=== PATIENT | female | born 1985 | race Caucasian/White ===

== ENCOUNTER 2016-04-23 13:18 | Outpatient (RCR) | payer OTHER ==
[~2016-04-23] VITALS: Ht 162.6 cm; Wt 70.8 kg
[2016-04-23 14:02] VITALS: BP 111/62
[2016-05-27] MEDS ORDERED: IBUP-1773 PO (18:15)
[2016-05-27] MEDS ORDERED: DOCU100C37 PO (18:15)
[2016-05-27] MEDS ORDERED: DIBU30OI TOP (18:15)
[2016-05-27] MEDS ORDERED: ACET1TAB43 PO (18:15)
[2016-05-27] MEDS ORDERED: FERR-74 PO (18:15)
== END 2016-07-22 | disposition home or self-care (01) ==
LOC: WSo 13:18 → EDSTATUS 13:53
PROVIDERS: ATTEND Obstetrics & Gynecology
DX: O09.213 Supervision of pregnancy with history of pre-term labor, third trimester (principal); R76.8 Other specified abnormal immunological findings in serum; Z3A.34 34 weeks gestation of pregnancy
CPT/HCPCS: 59025

== ENCOUNTER → 2019-03-15 | Outpatient (CLI) | payer OTHER ==
[~2019-03-15] MED LIST: ACET1TAB43 PO; DIBU30OI TOP; DOCU100C37 PO; FERR325T18 PO; IBUP-1773 PO
--- NOTE | 2019-03-15 13:25 | Diagnostic Imaging Report ---
INDICATION: anatomy survey. TECHNIQUE: Multiple real-time grayscale images were obtained over the gravid uterus. COMPARISON: None. FINDINGS: Single live intrauterine is in the cephalic presentation. The placenta is posteriorly located and there is no features of previa. The cervix is closed and measures approximately 3.8 cm in length. The amount of amniotic fluid appears visually appropriate. anatomy survey was performed and the following structures are visualized and normal: three-vessel umbilical cord, urinary bladder, kidneys, umbilical cord insertion, cerebellum and cisterna magna, four-chamber heart, cerebral ventricles, and all 4 extremities. The stomach and spine were not well assessed on today's examination due to lie. Biometrical measurements are as follows: Biparietal 4.41 cm, age 19 weeks 3 days. Head circumference 16.54 cm, age 19 weeks 2 days. Abdominal circumference 14.75 cm, age 20 weeks 1 days. Femur length 2.95 cm, age 19 weeks 1 days. Sonographic estimate age: 19 weeks 4 days. Sonographic estimated date of delivery: 08/05/2019. Estimated Weight: 299 gm (+/- 44 gm). LMP percentile: 90%. heart rate: 149 beats per minute. number: 1 of 1. IMPRESSION: 1. Single live intrauterine with concordant dates between today's ultrasound and provided gestational age. 2. Visualized anatomy is normal. The spine and stomach were not well assessed on today's examination due to lie. Dictated by: Dictated on workstation # [id number]
== END ==
LOC: RAD 09:59
PROVIDERS: ATTEND Obstetrics & Gynecology
DX: O36.0121 Maternal care for anti-D [Rh] antibodies, second trimester, fetus 1 (principal); Z3A.20 20 weeks gestation of pregnancy
CPT/HCPCS: 76805

== ENCOUNTER → 2019-04-29 | Outpatient (CLI) | payer OTHER ==
--- NOTE | 2019-04-29 16:34 | Diagnostic Imaging Report ---
INDICATION: survey, anatomic follow-up. TECHNIQUE: Multiple real-time grayscale images were obtained over the gravid uterus. COMPARISON: Prior study of 03/15/2019. FINDINGS: A single live intrauterine fetus is seen in cephalic presentation. Amniotic fluid index is 20.5 cm. Placenta is posterior and grade 1. heart rate is 146 bpm. Normal-appearing stomach and spine are noted. These structures were not visualized on the previous study. Remaining structures are not reimaged at this time. heart rate: 146 beats per minute. number: 1 of 1. IMPRESSION: Single live intrauterine fetus. Anatomic structures which were not seen on the previous study are visualized today and appear normal. The fetus is in cephalic presentation with heart rate of 146 bpm. Dictated by: Dictated on workstation # [id number]
== END ==
LOC: RAD 13:18
PROVIDERS: ATTEND Obstetrics & Gynecology
DX: Z01.83 Encounter for blood typing (principal); O99.012 Anemia complicating pregnancy, second trimester; Z3A.21 21 weeks gestation of pregnancy
CPT/HCPCS: 76805; 76819

== ENCOUNTER → 2019-05-28 | Outpatient (CLI) | payer OTHER ==
--- NOTE | 2019-05-28 13:59 | Diagnostic Imaging Report ---
INDICATION: Follow-up ultrasound. TECHNIQUE: Multiple real-time grayscale images were obtained over the gravid uterus. COMPARISON: None 04/29/2019 and 03/15/2019. FINDINGS: The previous OB ultrasound exam of 04/29/2019 noted a single live fetus. There are no abnormalities identified. On this study the fetus is again visualized. The fetus is cephalic in presentation. heart motion was noted and a rate of 135 BPM was recorded. There are no obvious abnormalities identified. By the first exam of 03/15/2019 the estimated gestational age is 30 weeks 1 day +/- 1.5 weeks. Reportedly the patient has had a prior ultrasound elsewhere which indicated that the EDC is 08/11/2019 consistent with a 29 week 2 day . On this study, the growth parameters have progressed as expected tending towards the high side of normal. The amniotic fluid volume is within normal limits. The placenta is along the left and intact. There is no previa. The cervix was identified and measures 3.4 cm. IMPRESSION: 1. There is a single live fetus approximately 30 weeks 2 days gestation +/- 1.5 weeks. The EDC remains August 05, 2019. 2. There are no obvious abnormalities identified. 3. The growth parameters have progressed as expected since the prior exam tending towards the high side of normal. If further evaluation of the growth is desired, then a follow-up exam in 4-6 weeks should be obtained. Biometrical measurements are as follows: Biparietal 7.82 cm, age 31 weeks 3 days. Head circumference 28.95 cm, age 32 weeks 0 days. Abdominal circumference 27.13 cm, age 31 weeks 2 days. Femur length 5.82 cm, age 30 weeks 3 days. Sonographic estimate age: 31 weeks 2 days. Sonographic estimated date of delivery: 07/28/19. Estimated Weight: 1690 gm (+/- 247 gm). LMP percentile: 92%. heart rate: 135 beats per minute. number: 1 of 1. Dictated by: Dictated on workstation # [id number]
== END ==
LOC: RAD 10:53
PROVIDERS: ATTEND Obstetrics & Gynecology
DX: Z34.93 Encounter for supervision of normal pregnancy, unspecified, third trimester (principal); Z3A.30 30 weeks gestation of pregnancy; Z01.83 Encounter for blood typing; R76.9 Abnormal immunological finding in serum, unspecified
CPT/HCPCS: 76816

== ENCOUNTER 2019-07-17 12:22 | Outpatient (CLI) | payer OTHER ==
--- NOTE | 2019-07-17 12:20 | NUR ---
WILLARD CLARK presented to unit via AMBULATORY, with c/o ABNORMAL MOVEMENT. WILLARD CLARK weighed, gowned, voided, and to bed. EFHM and TOCO applied, VS taken. WILLARD CLARK oriented to bed controls, call light, TV, heat, and A/C controls.
--- NOTE | 2019-07-17 12:46 | NUR ---
DR. HOUSTON NOTIFIED OF PT'S ARRIVAL AND UNABLE TO OBTAIN FHR VIA EFM OR DOPPLER. NEW ORDER RECEIVED.
--- NOTE | 2019-07-17 12:50 | NUR ---
U/S CALLED TO INFORM OF ORDER.
--- NOTE | 2019-07-17 13:29 | NUR ---
DR. HOUSTON NOTIFIED OF CONFIRMATION IN NO HEART TONES; WILL BE UP TO SEE PT AFTER HIS SURGERY.
[2019-07-17 13:40] VITALS: BP 108/59
--- NOTE | 2019-07-17 14:07 | Diagnostic Imaging Report ---
INDICATION: No movement. FINDINGS: There is an intrauterine fetus in a transverse presentation with head to the maternal right. However, no heart tones are detected consistent with demise. Placenta is anterior. Cervical length is 3.3 cm. IMPRESSION: Findings consistent with approximately 36 week intrauterine demise. Dictated by: Dictated on workstation # [id number]
--- NOTE | 2019-07-17 14:35 | NUR ---
DR. HOUSTON ON UNIT, SPOKE WITH S/O. S/O HAS INFORMED THIS RN AND THAT THEY WOULD LIKE TO GO HOME.
--- NOTE | 2019-07-17 14:48 | NUR ---
DISCHARGE PAPERS PROVIDED AND REVIEWED WITH PT, PT VERBALIZES UNDERSTANDING AND DENIES ANY QUESTIONS AT THIS TIME. PAPER SIGNED. PT THEN DISCHARGED FROM [facility] TO [facility]IA AMBULATORY IN STABLE CONDITION ACC BY S/O AND OTHER CHILDREN.
--- NOTE | 2019-07-18 08:24 | Physician Query-Final Dx ---
JOSE WHITLOCK 07/18/19 0824: Clinic Account Progress/Dx Physician Query: Please give diagnosis Please include # weeks gestation Date of Service Jul 17, 2019 at 12:22 IVETH HOUSTON MD 07/19/19 1230: Clinic Account Progress/Dx DIAGNOSIS: Diagnosis 35 WEEKS WITH IUFD JOSE WHITLOCK Jul 18, 2019 08:24 IVETH HOUSTON MD Jul 19, 2019 12:30
== END 2019-07-17 14:48 | disposition home or self-care (01) ==
LOC: WSo 12:22 → LDRP 12:23 → WS 13:56 → LDRP 13:56 → WSo 14:48
PROVIDERS: ATTEND Obstetrics & Gynecology
DX: Z34.83 Encounter for supervision of other normal pregnancy, third trimester (principal); Z3A.36 36 weeks gestation of pregnancy
CPT/HCPCS: 76815; 99213

== ENCOUNTER 2019-07-19 12:11 | Inpatient (IN) | payer OTHER ==
[2019-07-19] VITALS (44 sets, daily range): BP systolic 78–112; BP diastolic 43–83
[~2019-07-19] VITALS: Ht 160 cm; Wt 76.9 kg
--- NOTE | 2019-07-19 12:02 | NUR ---
called prior to pt's admission to . POC reviewed. admission orders received.
--- NOTE | 2019-07-19 12:03 | NUR ---
WILLARD CLARK presented to unit via from ED, accompanied by and children, with c/o IUFD. Pt. weighed, gowned, voided, and to bed. EFHM and TOCO applied, VS taken. Pt. oriented to bed controls, call light, TV, heat, and A/C controls.
[2019-07-19] MEDS ORDERED: D5 LR IV SOLUTION 1,000 ML IV SCH (12:30)
--- NOTE | 2019-07-19 12:32 | NUR ---
POC reviewed with pt, states understanding. requesting to pray for 10 mins before IV started. @ side.
[2019-07-19] MEDS: D5 LR IV SOLUTION 1,000 ML IV SCH ×2 (13:15→21:35)
--- NOTE | 2019-07-19 13:15 | NUR ---
#20g IV to Rt. hand x1 attempt per Rebecca.BERENICE Yancey. unsuccessful attempt x2 by this RN. site patent. secured with opsite. admission labs collected prior to IVF's infusing.
[2019-07-19 13:23] LABS: BILIRUBIN,URINE NEGATIVE (NEGATIVE); CLARITY,URINE CLEAR; COLOR,URINE YELLOW; GLUCOSE, URINE (UA) NEGATIVE (NEGATIVE); KETONES,URINE TRACE (NEGATIVE); LEUKOCYTE ESTERASE ,URINE 1+ (NEGATIVE); NITRITE,URINE NEGATIVE (NEGATIVE); PH,URINE 7.5 (5-9); PROTEIN,URINE NEGATIVE (NEGATIVE)
--- NOTE | 2019-07-19 13:30 | NUR ---
@ bedside. bedside sono to verify position performed by
[2019-07-19 13:32] LABS: BASOPHILS % (AUTO) 0 % (0-10); EOSINOPHILS % (AUTO) 0 % (0-10); HEMATOCRIT 34 % (35-52); HEMOGLOBIN 10.6 G/DL (11.5-16.0); LYMPHOCYTES # (AUTO) 1.4 X 10^3 (1.0-4.0); LYMPHOCYTES % (AUTO) 25 % (12-44); MEAN CORPUSCULAR HEMOGLOBIN 19 PG (25-34); MEAN CORPUSCULAR HGB CONC 32 G/DL (32-36); MEAN CORPUSCULAR VOLUME 60 FL (80-99); MONOCYTES # (AUTO) 0.6 X 10^3 (0.0-1.0); MONOCYTES % (AUTO) 10 % (0-12); NEUTROPHILS # (AUTO) 3.8 X 10^3 (1.8-7.8); NEUTROPHILS % (AUTO) 65 % (42-75); PLATELET COUNT 251 10^3/uL (130-400); WHITE BLOOD COUNT 5.8 10^3/uL (4.3-11.0)
--- NOTE | 2019-07-19 13:32 | NUR ---
SVE 1.5cm, thick per . verbal orders received for Cytotec 100mcg p.o x1 then 50mcg q 4hours p.o. pt may have epidural
[2019-07-19 13:35] LABS: BACTERIA,URINE MODERATE /HPF; SQUAMOUS EPITHELIAL CELL,UR 25-50 /HPF
--- NOTE | 2019-07-19 13:57 | NUR ---
lab here to obtain blood for reference labs.
[2019-07-19] MEDS ORDERED: MISOPROSTOL 100 MCG (CYTOTEC) TAB ONE ×2 (13:58→18:10)
[2019-07-19] MEDS ORDERED: MISOPROSTOL 100 MCG (CYTOTEC) TAB PO ONE ×3 (14:00→18:30)
[2019-07-19] MEDS ORDERED: CATHETER FLUSH 10 ML SYR IV SCH (14:00)
--- NOTE | 2019-07-19 14:03 | NUR ---
Cytotec 100mg p.o. given.
--- NOTE | 2019-07-19 14:07 | NUR ---
1 liter LR infusing via gravity. pt c/o's pain @ insertion site. IV infiltrated.
--- NOTE | 2019-07-19 14:30 | NUR ---
#20g Rt. wrist x1 attempt by BERENICE Emmanuel. site patent. resumed IVF infusion.
[2019-07-19] MEDS ORDERED: fentaNYL INJECTION 100 MCG/2 ML AMP ONE (14:50)
[2019-07-19] MEDS ORDERED: SUFENTA 0.6MCG/ML BUPIVA 0.125 100 ML ONE (14:50)
[2019-07-19] MEDS ORDERED: BUPIVACAINE 0.25% 30 ML (SENSORCAINE) VIAL ONE (14:50)
[2019-07-19] MEDS ORDERED: LIDOCAINE PF 2% 5 ML (XYLOCAINE) VIAL ONE (14:50)
--- NOTE | 2019-07-19 15:04 | NUR ---
YASMANI Davis & Rosanne SRNA here for epidural placement. Procedure explained, consent reviewed and signed by anesthesia. Questions answered to patient's satisfaction. Time out taken to verify correct patient/procedure. 1505- Patient up to side of bed, assisted into sitting position. Betadine prep done x3 and sterile drape applied. 1514-Local done, see anesthesia record. 1520- Test dose given, see anesthesia record for drug and dosage. Epidural catheter secured in place. Epidural placement complete. 1525- Assisted back into bed, monitors adjusted. Epidural dosed, see anesthesia record. Epidural of Sufenta/Bupvicaine @12cc/hr stated per pump. Patient tolerated procedure well.
[2019-07-19] MEDS: EPIDURAL (SUFENTA 0.6MCG/ML BUPIVA 0.125%) 100 ML BAG EPI PRN ×2 (15:26→23:32)
[2019-07-19] MEDS ORDERED: LACTATED RINGERS 1,000 ML IV SCH (15:34)
[2019-07-19] MEDS ORDERED: ONDANSETRON 4 MG/2 ML (SDV) Z0FRAN IV PRN (15:45)
[2019-07-19] MEDS ORDERED: diphenhydrAMINE 50 MG/ML INJ (BENADRYL) IV PRN (15:45)
[2019-07-19] MEDS ORDERED: NALOXONE 0.4 MG/ML 1 ML (NARCAN) VIAL IV PRN (15:45)
--- NOTE | 2019-07-19 17:03 | NUR ---
#16 irish mckeon catheter inserted by this RN while using sterile procedure. immediate return of dark, yellow urine noted in chamber. pt tolerated well.
--- NOTE | 2019-07-19 17:07 | NUR ---
IGNACIOE 1.5cm, thick, anterior. update given to . Addendum: 07/19/19 at 1850 by DEBORAH SANTANA RN pt refused TOCO monitoring for ctx's @ time.
--- NOTE | 2019-07-19 18:07 | NUR ---
50mcg p.o. Cytotec given.
--- NOTE | 2019-07-19 18:22 | NUR ---
called to check on pt's status. update given. order received to given additional 50mcg p.o. Cytotec now. have oncoming RN check cervix in 4 hours, call MD for further orders.
--- NOTE | 2019-07-19 18:34 | NUR ---
Cytotec 50mcg p.o. given per Dr's orders.
--- NOTE | 2019-07-19 19:22 | NUR ---
REPORT RECEIVED AT BEDSIDE AND CARES RESUMED BY THIS NURSE. PT DENIES ANY PAIN, NEEDS OR C/O'S. REPORTS HAS GONE HOME TO CARE FOR THE OTHER CHILDREN. HE WILL RETURN WHEN NEEDED. WILL CONT TO MONITOR PT.
--- NOTE | 2019-07-19 19:22 | NUR ---
report given to BERENICE Solorio.
--- NOTE | 2019-07-19 20:35 | NUR ---
PT DENIES ANY PAIN. ASSISTANCE GIVEN WITH REPOSITIONING PT IS UNABLE TO MOVE LOWER EXTREMITIES. PT DENIES ANY NEEDS AT THIS TIME.
--- NOTE | 2019-07-19 21:35 | NUR ---
NEW BAG D5LR HUNG AND FRESH WATER GIVEN. PT DENIES ANY NEEDS OR PAIN AT THIS TIME.
[2019-07-19] MEDS ORDERED: MISOPROSTOL 200 MCG (CYTOTEC) TABLET ONE (22:22)
--- NOTE | 2019-07-19 22:30 | NUR ---
SVE DONE. LITTLE TO NO CHANGE NOTED FROM PREVIOUS EXAM. 200 MCG CYTOTEC ADMINISTERED PER ORDERS. DR GOFF UPDATED ON PT CONDITION AND ASSESSMENT.
[2019-07-19] MEDS ORDERED: MISOPROSTOL 200 MCG (CYTOTEC) TABLET PO ONE ×2 (22:32→22:35)
--- NOTE | 2019-07-19 23:20 | NUR ---
PT HAD SMALL AMT OF EMESIS AT THIS TIME. REPORTS NAUSEA CAME ON ALL OF A SUDDEN. DID NOT VISUALIZE CYTOTEC IN EMESIS SO NO REPEAT DOSE GIVEN. PT GIVEN ZOFRAN IV AT THIS TIME. NEW EPIDURAL BAG HUNG.
[2019-07-19] MEDS ORDERED: SUFENTA 0.6MCG/ML BUPIVA 0.125 100 ML INJ ONE (23:25)
[2019-07-20] VITALS (54 sets, daily range): BP systolic 77–146; BP diastolic 40–70
--- NOTE | 2019-07-20 00:15 | NUR ---
PT DENIES ANY FURTHER NAUSEA. RESTING OFF ET ON. PT DENIES ANY NEEDS OR PAIN.
[2019-07-20] MEDS ORDERED: MISOPROSTOL 100 MCG (CYTOTEC) TAB PO ONE ×2 (02:30)
[2019-07-20] MEDS ORDERED: MISOPROSTOL 100 MCG (CYTOTEC) TAB ONE (02:44)
[2019-07-20] MEDS ORDERED: MISOPROSTOL 200 MCG (CYTOTEC) TABLET ONE (02:44)
--- NOTE | 2019-07-20 02:45 | NUR ---
SVE DONE WITH LITTLE CHANGE NOTED. 300 MCG CYTOTEC GIVEN PO PER DR GOFF'S ORDERS. PT DENIES ANY FURTHER NEEDS.
--- NOTE | 2019-07-20 03:30 | NUR ---
PT RESTING WELL.
--- NOTE | 2019-07-20 05:30 | NUR ---
PT STATES SHE FEELS LIKE HER ABD IS HARD AND NOT RELAXING AT ALL AND WOULD LIKE TO HAVE THE MONITOR PLACED TO SEE IF SHE IS HAVING CONTRACTIONS. NOTED ABD TO BE VERY TIGHT AND PALPATING STRONG. TOCO APPLIED AT THIS TIME.
--- NOTE | 2019-07-20 06:35 | NUR ---
DR GOFF UPDATED ON PT CONDITION AND PROGRESS.
[2019-07-20] MEDS ORDERED: SUFENTA 0.6MCG/ML BUPIVA 0.125 100 ML INJ ONE (06:54)
[2019-07-20] MEDS: EPIDURAL (SUFENTA 0.6MCG/ML BUPIVA 0.125%) 100 ML BAG EPI PRN (06:57)
[2019-07-20] MEDS ORDERED: OXYTOCIN PRE-MIX DRIP 500 ML IV SCH (07:00)
--- NOTE | 2019-07-20 08:30 | NUR ---
called to check on pt's status. update given. will check cervix after breakfast & update .
--- NOTE | 2019-07-20 08:54 | NUR ---
SVE update given to . no new orders received @ time.
--- NOTE | 2019-07-20 09:52 | NUR ---
[facility] infant.
[2019-07-20] MEDS ORDERED: TRANEXAMIC ACID INJECTION 1,000 MG in NS (IVPB) 100 ML IV ONE (11:15)
[2019-07-20] MEDS ORDERED: MINERAL OIL CONCENTRATE 99.9% 15 ML UDC ONE (13:09)
[2019-07-20] MEDS ORDERED: LIDOCAINE/EPI 2% 1:200,00 (XYLOCAINE) 10 ML VIAL ONE (13:13)
[2019-07-20] MEDS ORDERED: LORazepam 0.5 MG (ATIVAN) TABLET PO PRN (14:00)
[2019-07-20] MEDS ORDERED: WITCH HAZEL(TUCKS) 40 EA JAR TOP PRN (14:00)
[2019-07-20] MEDS ORDERED: MEASLES,MUMPS,RUBELLA 1 EA INJ SQ ONE (14:00)
[2019-07-20] MEDS ORDERED: BENZOCAINE/MENTHOL (DERMOPLAST) 60 ML CAN TP PRN (14:00)
[2019-07-20] MEDS ORDERED: OXYTOCIN (PITOCIN) 10 UNIT/ML VIAL IM ONE (14:00)
[2019-07-20] MEDS ORDERED: DIBUCAINE (NUPERCAINAL) 1% OINT 30 GM TOP PRN (14:00)
[2019-07-20] MEDS ORDERED: TETANUS,DIPTH,PERTUSS P/F (BOOSTRIX) 0.5 ML VIAL IM ONE (14:00)
--- NOTE | 2019-07-20 14:00 | NUR ---
infant to nursery per parents request. 1403- locket of hair obtained 1405- weighed 7# 0.5oz. 3195gm. measured 20.5 inches long. 1409- measurements taken. 1420- hand and foot prints obtained. stockinette hat on. diaper applied. infant placed in cuddle cot, out to mother's room for viewing.
--- NOTE | 2019-07-20 14:08 | OB Labor & Delivery Record ---
Vag Delivery Note Vag Delivery Note Date of Delivery: 07/20/19 Preoperative Diagnosis: Jennyfer Gary is a 33 /Para 3 /2 , Gestational Age 36 weeks, demise, abnormal antibodies (Payton-Nu); maternal anemia, SC trait, alpha thal (Maybe) Postoperative Diagnosis: Same Surgeon: JACKSON GOFF Anesthesia: epidural Delivery Type: vaginal Findings: Non viable male infant, weight pending Lacerations: none Intact placenta with unknown (could not assess due to demise) vessel cord. There was a tight nuchal cord x 2 that could not be reduced Skin sloughed and peeling, no evidence of hydrops Estimated Blood Loss: 100 ml Complications: None; however, her IV infiltrated. She did receive 84 ml/100/ml of Tranexamic acid prior to delivery and a small amount of the IV pitocin, so 20 mU of Oxytocin given IM after delivery Condition: Stable Description of Procedure: The patient is a 33 year old female who presented for induction due to demise. She has a history of abnormal blood antibodies (Payton-Nu). She was admitted and informed consent was obtained. Cervix was unfavorable so she was given accelerated doses of po misoprostol. she progressed to 4 cm after 3 doses (400 mcg total) and then oxytocin was started. She stalled at 6 cm, so AROM was accomplished. There was copious fluid that appeared meconium stained. She progressed to complete dilatation and began to push. She was then set up for delivery. The 's head was delivered atraumatically in the OA position. The shoulders and remainder of the 's body were then delivered without difficulty. There was a tight nuchal cord x 2 and this made delivery of the body difficult as there was no tone to the body. I did utilize the Menticoglou/shoulder shrug maneuver to deliver the shoulders. The cord was doubly clamped and cut. An intact placenta with 3-vessel cord delivered via Cynthia and there was found to be minimal bleeding.~ Vigorous fundal massage was performed and the fundus was found to be firm. IV oxytocin was given, however, the IV infiltrated, so 20 units IM oxytocin was given. Examination of the vagina and perineum revealed no laceration. Following the delivery, sponge, instrument and needle counts were correct. Mom and baby were both in stable condition in the labor suite. Vitals - Labs Vital Signs - I&O Vital Signs Date Time Temp Pulse Resp B/P (MAP) Pulse Ox O2 Delivery O2 Flow Rate FiO2 07/20/19 12:10 95 18 101/59 (73) Room Air 07/20/19 11:55 95 18 101/59 (73) Room Air 07/20/19 11:40 106 18 98/58 (71) Room Air 07/20/19 11:25 96 18 98/55 (69) Room Air 07/20/19 11:10 100 18 103/56 (72) Room Air 07/20/19 10:55 36.6 96 18 98/53 (68) Room Air 07/20/19 10:40 18 Room Air 07/20/19 10:25 36.8 95 18 119/55 (76) Room Air 07/20/19 09:55 107 18 88/51 (63) Room Air 07/20/19 09:40 109 18 104/45 (64) Room Air 07/20/19 09:25 109 18 101/50 (67) Room Air 07/20/19 09:10 102 18 103/55 (71) Room Air 07/20/19 08:55 18 92/53 (66) Room Air 07/20/19 08:40 92 18 94/54 (67) Room Air 07/20/19 08:25 101 18 109/70 (83) Room Air 07/20/19 08:10 92 18 91/55 (67) Room Air 07/20/19 07:55 88 18 94/52 (66) Room Air 07/20/19 07:40 87 18 104/65 (78) Room Air 07/20/19 07:25 37.1 84 18 106/55 (72) Room Air 07/20/19 06:55 91 18 110/66 (81) Room Air 07/20/19 06:40 87 18 101/59 (73) Room Air 07/20/19 06:25 89 18 104/64 (77) Room Air 07/20/19 06:10 89 18 104/66 (79) Room Air 07/20/19 05:55 93 18 108/66 (80) Room Air 07/20/19 05:40 89 18 105/65 (78) Room Air 07/20/19 05:25 86 18 105/55 (72) Room Air 07/20/19 05:10 107 18 103/51 (68) Room Air 07/20/19 04:55 106 18 96/56 (69) Room Air 07/20/19 04:40 106 18 97/58 (71) Room Air 07/20/19 04:25 96 18 89/54 (66) Room Air 07/20/19 04:10 96 18 92/52 (65) Room Air 07/20/19 03:50 93 18 91/51 (64) Room Air 07/20/19 03:40 94 18 91/51 (64) Room Air 07/20/19 03:25 93 16 95/54 (68) Room Air 07/20/19 03:10 90 18 103/63 (76) Room Air 07/20/19 02:55 105 18 105/63 (77) Room Air 07/20/19 02:40 36.6 99 16 100/55 (70) Room Air 07/20/19 02:25 102 16 105/59 (74) Room Air 07/20/19 02:10 105 18 118/63 (81) Room Air 07/20/19 01:55 100 18 97/54 (68) Room Air 07/20/19 01:40 101 18 95/55 (68) Room Air 07/20/19 01:25 101 18 77/40 (52) Room Air 07/20/19 01:10 98 18 88/50 (63) Room Air 07/20/19 00:55 107 16 78/41 (53) Room Air 07/20/19 00:40 36.7 95 16 84/52 (63) Room Air 07/20/19 00:25 100 16 86/50 (62) Room Air 07/20/19 00:10 80 18 89/50 (63) Room Air 07/19/19 23:55 88 18 90/54 (66) Room Air 07/19/19 23:40 87 18 93/51 (65) Room Air 07/19/19 23:25 88 16 102/55 (71) Room Air 07/19/19 23:10 83 18 104/56 (72) Room Air 07/19/19 22:55 89 18 111/52 (71) Room Air 07/19/19 22:40 36.6 90 16 107/63 (78) Room Air 07/19/19 22:25 91 18 108/83 (91) Room Air 07/19/19 22:10 98 18 86/57 (67) Room Air 07/19/19 21:55 93 18 96/59 (71) Room Air 07/19/19 21:40 85 16 95/52 (66) Room Air 07/19/19 21:25 76 18 108/53 (71) Room Air 07/19/19 21:10 87 18 92/57 (69) Room Air 07/19/19 20:55 93 16 99/56 (70) Room Air 07/19/19 20:40 36.9 82 16 88/54 (65) Room Air 07/19/19 20:25 82 16 93/55 (68) Room Air 07/19/19 20:10 80 16 93/54 (67) Room Air 07/19/19 19:55 82 16 90/52 (65) Room Air 07/19/19 19:40 99 16 88/53 (65) Room Air 07/19/19 19:25 74 16 83/45 (58) Room Air 07/19/19 19:10 84 18 90/53 (65) Room Air 07/19/19 18:55 84 18 104/66 (79) Room Air 07/19/19 18:40 78 18 78/43 (55) Room Air 07/19/19 18:25 77 18 81/46 (58) Room Air 07/19/19 18:10 83 18 89/59 (69) 99 Room Air 07/19/19 17:55 94 18 81/57 (65) 99 Room Air 07/19/19 17:40 82 18 92/52 (65) 99 Room Air 07/19/19 17:25 79 18 93/52 (66) 99 Room Air 07/19/19 17:10 80 18 101/58 (72) 98 Room Air 07/19/19 16:55 83 18 98/53 (68) 99 Room Air 07/19/19 16:40 92 18 104/58 (73) 99 Room Air 07/19/19 16:25 78 18 105/61 (76) 99 Room Air 07/19/19 16:10 80 18 104/59 (74) 100 Room Air 07/19/19 15:51 83 18 98/58 (71) 100 Room Air 07/19/19 15:46 86 18 100/60 (73) 100 Room Air 07/19/19 15:41 81 18 102/62 (75) 99 Room Air 07/19/19 15:36 84 18 110/70 (83) 99 Room Air 07/19/19 15:31 90 18 112/66 (81) 98 Room Air 07/19/19 15:26 94 18 104/63 (77) 100 Room Air 07/19/19 15:21 83 18 101/60 (74) 100 Room Air 07/19/19 15:16 93 18 102/60 (74) 100 Room Air 07/19/19 15:11 90 18 103/61 (75) 100 Room Air 07/19/19 15:06 92 18 106/61 (76) 100 Room Air 07/19/19 14:52 81 18 105/59 (74) Room Air Labs Microbiology 07/19/19 Urine Culture - Preliminary, Resulted NO GROWTH JACKSON GOFF DO Jul 20, 2019 14:08
[2019-07-20] MEDS ORDERED: IRON1TAB95 PO (14:12)
[2019-07-20] MEDS ORDERED: IBUP-844 PO (14:12)
[2019-07-20] MEDS ORDERED: WTCHGPD TOP (14:12)
[2019-07-20] MEDS ORDERED: ACET-93 PO (14:12)
[2019-07-20] MEDS ORDERED: BENZ78AE2 TP (14:12)
[2019-07-20] MEDS ORDERED: DIBU30OI TOP (14:12)
--- NOTE | 2019-07-20 14:22 | Discharge Inst-Women's Service ---
Discharge Inst-Women's Serv Depart Medication/Instructions New, Converted or Re-Newed RX: Transmitted to Pharmacy Final Diagnosis demise maternal anemia abnormal blood antibodies Problems Reviewed?: Yes Consults/Follow Up Additional Follow Up: Yes (1 week) Activity Activity: Activity as Tolerated Driving Instructions: You May Drive NO SMOKING: NO SMOKING Nothing Inside Vagina: No Douching, No N[place], No Tampons Diet Discharge Diet: No Restrictions Symptoms to Report to : Swelling Increased, Pain Increased, Fever Over 101 Degrees F, Vaginal Bleeding Increase, Cramps in Feet or Legs For Any Problems or Questions: Contact Your Physician JACKSON GOFF DO Jul 20, 2019 14:22
--- NOTE | 2019-07-20 14:49 | NUR ---
FFu/1. lt rubra noted. no clots expressed
--- NOTE | 2019-07-20 14:54 | NUR ---
[facility] notified of delivery.
--- NOTE | 2019-07-20 15:08 | NUR ---
Clarence Schafer called per URI's request r/t picking up infant.
--- NOTE | 2019-07-20 15:28 | NUR ---
, [facility], was notified of delivery.
--- NOTE | 2019-07-20 15:45 | NUR ---
pt transferred to room 304 via w/c with @ side. up to BR. micah-care offered. lt tacho noted on v-pad. pt changed into own clothing.
[2019-07-20] MEDS: IBUPROFEN 600 MG (MOTRIN) TAB PO SCH ×2 (15:47→21:40)
--- NOTE | 2019-07-20 16:41 | NUR ---
[facility] here. release of body consent signed, copy given to study director.
--- NOTE | 2019-07-20 16:51 | NUR ---
infant's body released to care of [facility].
[2019-07-20] MEDS: ACETAMINOPHEN 500 MG TAB (TYLENOL) PO SCH (17:56)
[2019-07-20] MEDS: DOCUSATE SODIUM 100 MG (COLACE) CAP PO SCH (20:33)
--- NOTE | 2019-07-20 20:33 | NUR ---
PT RESTING IN BED. FAMILY AT SIDE. ASSESSMENT COMPLETED. PT DENIES ANY CONCERNS OR NEEDS AT THIS TIME. WILL CONTINUE TO MONITOR.
--- NOTE | 2019-07-20 20:55 | NUR ---
called to unit requesting update. Update given. New orders received.
[2019-07-20] MEDS ORDERED: AUGMENTIN 875 MG TAB (AMOXICILLIN/CLAVULANATE) ONE (21:30)
[2019-07-20] MEDS: AUGMENTIN 875 MG TAB (AMOXICILLIN/CLAVULANATE) PO SCH (21:40)
[2019-07-20] MEDS: metroNIDAZOLE 500 MG (FLAGYL) TAB PO SCH (21:41)
--- NOTE | 2019-07-20 23:01 | NUR ---
Pt requesting medication to help her sleep. Xanax given po. s/o at bedside. pt denies any needs. lights turned down. pt is going to rest
[2019-07-21] MEDS: ACETAMINOPHEN 500 MG TAB (TYLENOL) PO SCH ×2 (02:36→10:25)
[2019-07-21] MEDS: IBUPROFEN 600 MG (MOTRIN) TAB PO SCH ×2 (04:49→10:01)
[2019-07-21 05:45] LABS: BASOPHILS % (AUTO) 0 % (0-10); EOSINOPHILS % (AUTO) 0 % (0-10); HEMATOCRIT 31 % (35-52); HEMOGLOBIN 9.9 G/DL (11.5-16.0); LYMPHOCYTES # (AUTO) 1.8 X 10^3 (1.0-4.0); LYMPHOCYTES % (AUTO) 16 % (12-44); MEAN CORPUSCULAR HEMOGLOBIN 19 PG (25-34); MEAN CORPUSCULAR HGB CONC 32 G/DL (32-36); MEAN CORPUSCULAR VOLUME 60 FL (80-99); MONOCYTES # (AUTO) 1.1 X 10^3 (0.0-1.0); MONOCYTES % (AUTO) 10 % (0-12); NEUTROPHILS % (AUTO) 74 % (42-75); PLATELET COUNT 234 10^3/uL (130-400); RED CELL DISTRIBUTION WIDTH 20.2 % (10.0-14.5); WHITE BLOOD COUNT 10.8 10^3/uL (4.3-11.0)
[2019-07-21] MEDS ORDERED: PRENATAL VITAMIN 1 EA TAB PO SCH (07:00)
--- NOTE | 2019-07-21 07:40 | Anesthesia-Regional Post-Op ---
Regional Patient Condition Mental Status: Alert, Oriented x3 Circulation: Same as Pre-Op Headache: Absent Sensation: Full Recovery Motor Block: Absent Post Op Complications Complications None Follow Up Care/Instructions Patient Instructions None needed. Anesthesia/Patient Condition Patient is doing well, no complaints, stable vital signs, no apparent adverse anesthesia problems. No complications reported per nursing. LAURENT HODGE CRNA Jul 21, 2019 07:40
--- NOTE | 2019-07-21 09:08 | NUR ---
called to check on pt. dismissal orders received.
[2019-07-21] MEDS ORDERED: AMOX1TAB12 PO (09:09)
[2019-07-21] MEDS ORDERED: METR-145 PO (09:09)
[2019-07-21] MEDS ORDERED: Lorazepam PO (09:11)
--- NOTE | 2019-07-21 09:26 | Short Stay Summary ---
Discharge Summary Hospital Course Hospital Course Date of Admission: Jul 19, 2019 at 12:12 Admission Diagnosis : Family Physician/Provider: AnnabelleLocal Physician Date of Discharge: 07/21/19 Discharge Diagnosis: [ ] Hospital Course: [ ] Labs and Pending Lab Test: Laboratory Tests 07/21/19 05:36: White Blood Count 10.8, Red Blood Count 5.24, Hemoglobin 9.9L, Hematocrit 31L, Mean Corpuscular Volume 60L, Mean Corpuscular Hemoglobin 19L, Mean Corpuscular Hemoglobin Concent 32, Red Cell Distribution Width 20.2H, Platelet Count 234, Mean Platelet Volume , Neutrophils (%) (Auto) 74, Lymphocytes (%) (Auto) 16, Monocytes (%) (Auto) 10, Eosinophils (%) (Auto) 0, Basophils (%) (Auto) 0, Neutrophils # (Auto) 8.0H, Lymphocytes # (Auto) 1.8, Monocytes # (Auto) 1.1H, Eosinophils # (Auto) 0.0, Basophils # (Auto) 0.0 Microbiology 07/19/19 Urine Culture - Preliminary, Resulted NO GROWTH Home Meds Active [Lorazepam] 0.5 MG Tablet 0.5 Mg PO HS PRN Metronidazole 500 Mg Tablet 500 Mg PO TID Amox Tr-K Clv 875-125 mg Tab (Amoxicillin/Potassium Clav) 1 Each Tablet 875 Mg PO BID WITH MEALS Iron 100 Plus Tablet (Iron,Carbonyl/Vit C/Vit B12/FA) 1 Each Tablet 1 Each PO DAILY Dermoplast Pain Relieving [place] (Benzocaine/Menthol) 78 Gm Aerosol 56 Ml TP UD PRN A.e.r Pads (Witch Gely/Glycerin) 40 Ea Pad 1 Ea TOP UD PRN after BM and prn Dibucaine 30 Gm Oint 0 Gm TOP UD PRN Acetaminophen 500 Mg Tablet 1,000 Mg PO Q8HR Ibu (Ibuprofen) 600 Mg Tablet 600 Mg PO Q6HR Ferrous Sulfate 325 Mg Tablet 325 Mg PO DAILY Discharge Instructions Discharge Diet: No Restrictions Discharge Physical Examination Allergies: Coded Allergies: No Known Drug Allergies (Unverified , 05/27/16) Discharge Summary Date of Admission Jul 19, 2019 at 12:12 Date of Discharge Discharge Date: Jul 21, 2019 Clinical Quality Measures DVT/VTE Risk/Contraindication: Risk Factor Score Per Nursin RFS Level Per Nursing on Admit: 1=Low/No VTE PPX JACKSON GOFF DO Jul 21, 2019 09:26
[2019-07-21 10:01] VITALS: BP 109/67
[2019-07-21] MEDS: metroNIDAZOLE 500 MG (FLAGYL) TAB PO SCH (10:01)
[2019-07-21] MEDS: DOCUSATE SODIUM 100 MG (COLACE) CAP PO SCH (10:01)
--- NOTE | 2019-07-21 10:01 | NUR ---
initial shift assessment completed, see interventions for further.
[2019-07-21] MEDS: AUGMENTIN 875 MG TAB (AMOXICILLIN/CLAVULANATE) PO SCH (10:25)
--- NOTE | 2019-07-21 10:30 | NUR ---
dismissal instructions given, verbalizes understanding. reviewed Rx's and medication administration schedule. signature page signed, placed on chart.
--- NOTE | 2019-07-21 10:40 | NUR ---
pt dismissed to private vehicle via w/c with this RN and @ side. pt stable with no sx's of distress noted.
== END 2019-07-21 10:40 | disposition home or self-care (01) | DRG 807 ==
LOC: WSo 12:11 → LDRP 12:11 → WSo 12:12 → LDRP 12:12 → WS 07-20 15:45
PROVIDERS: ADMIT Obstetrics & Gynecology; ATTEND Obstetrics & Gynecology
PROC: 3E033VJ Introduction of Other Hormone into Peripheral Vein, Percutaneous Approach (ICD-10-PCS; principal; 2019-07-20)
PROC: 10907ZC Drainage of Amniotic Fluid, Therapeutic from Products of Conception, Via Natural or Artificial Opening (ICD-10-PCS; principal; 2019-07-20)
PROC: 10E0XZZ Delivery of Products of Conception, External Approach (ICD-10-PCS; principal; 2019-07-20)
DX: O36.4XX0 Maternal care for intrauterine death, not applicable or unspecified (principal); Z37.1 Single stillbirth; O99.02 Anemia complicating childbirth; D57.3 Sickle-cell trait; Z3A.36 36 weeks gestation of pregnancy; O69.1XX0 Labor and delivery complicated by cord around neck, with compression, not applicable or unspecified; D56.0 Alpha thalassemia; O77.0 Labor and delivery complicated by meconium in amniotic fluid
CPT/HCPCS: 36415; 81000; 85025; 86850; 86870; 86900; 86901; 87088